=== PATIENT | male | born 1990 | race Caucasian/White ===

== ENCOUNTER 2025-06-23 02:22 | Emergency (ER) | payer MEDICAID ==
[~2025-06-23] VITALS: Ht 162.6 cm; Wt 63.0 kg
[2025-06-23 02:25] VITALS: O2SAT 98
[2025-06-23] MEDS: SODIUM CHLORIDE 0.9% 1,000 ML IV ONE (03:04)
[2025-06-23 04:20] LABS: BASOPHILS % 0.3 % (0.0-2.0); EOSINOPHILS % 1.6 % (0.0-5.0); HEMATOCRIT. 41.3 % (42.0-52.0); HEMOGLOBIN. 14.5 g/dL (14.0-18.0); LYMPHOCYTES % 33.3 % (20.0-50.0); MEAN PLATELET VOLUME 8.2 fl (7.4-10.4); MONOCYTES % 11.2 % (2.0-8.0); NEUTROPHILS % 53.6 % (40.0-76.0); PLATELET 193 x1000/uL (130-400); RED BLOOD CELL COUNT 4.68 mill/uL (4.7-6.1); RED CELL DISTRIBUTION WIDTH 13.8 % (11.6-14.6)
[2025-06-23 04:36] LABS: CREATININE 0.9 mg/dL (0.6-1.3); UREA NITROGEN BLOOD < 5 mg/dL (9-23)
[2025-06-23 04:37] LABS: ETHANOL BLOOD 300 mg/dL (<10); TROPONIN I HIGH SENSITIVITY < 4 ng/L (3.0-53)
[2025-06-23 04:38] LABS: ASPARTATE AMINOTRANSFERASE 97 IU/L (<34); BILIRUBIN DIRECT < 0.1 mg/dL (<=3.0); BILIRUBIN TOTAL 0.2 mg/dL (0.1-1.0); PROTEIN TOTAL 6.4 g/dL (6.0-8.3)
[2025-06-23] MEDS: POTASSIUM CHLORIDE 20MEQ/PACKET PO NR (04:50)
[2025-06-23 05:24] LABS: *AMPHETAMINES SCREEN URINE NEGATIVE (NEGATIVE); *BARBITURATES SCREEN URINE NEGATIVE (NEGATIVE); *BENZODIAZEPINES SCREEN URINE NEGATIVE (NEGATIVE); *COCAINE SCREEN URINE NEGATIVE (NEGATIVE); CANNABINOID URINE SCREEN NEGATIVE (NEGATIVE); ECSTASY MDMA SCREEN URINE NEGATIVE (NEGATIVE); METHADONE URINE SCREEN NEGATIVE (NEGATIVE); OPIATES URINE SCREEN NEGATIVE (NEGATIVE); PHENCYCLIDINE URINE SCREEN NEGATIVE (NEGATIVE)
[2025-06-23] MEDS: KETOROLAC 15MG/ML VIAL IV ONE (05:39)
[2025-06-23] MEDS: FLUOXETINE HCL 10 MG CAPSULE PO SCH (11:59)
[2025-06-23] MEDS ORDERED: IOHEXOL-350 100 ML BOTTLE ONE (16:29)
[2025-06-23 18:21] VITALS: BP 144/108; PULSE 84; RESP 20; TEMP 36.7; O2SAT 97
== END 2025-06-23 18:25 ==
LOC: ER 02:40
DX: R45.851 Suicidal ideations (principal); G89.29 Other chronic pain; R07.89 Other chest pain; F10.229 Alcohol dependence with intoxication, unspecified; F32.9 Major depressive disorder, single episode, unspecified; Z20.822 Contact with and (suspected) exposure to COVID-19; Y90.8 Blood alcohol level of 240 mg/100 ml or more
CPT/HCPCS: 80076; 80305; 80048; 80307; 80329; 80320; 83690; 85025; 85379; 84484; 36415; 71045; 74177; 93005; 96361; 96374; 99285; 87426; Q9967; J1885; J7030; Z7610 ×2; G0480